=== PATIENT | male | born 1955 | race Caucasian/White ===

== ENCOUNTER 2018-12-28 13:04 | Inpatient (IN) | payer MEDICARE, OTHER ==
[2018-12-28 14:03] LABS: ADD MAN DIFF? NO
[2018-12-28 14:05] LABS: BASOPHIL # 0.1 10^3/ul (0.0-0.1); BASOPHILS % 0.6 % (0.0-2.0); EOSINOPHILS # 0.1 10^3/ul (0.0-0.5); HEMATOCRIT 43.7 % (42.0-52.0); HEMOGLOBIN 14.4 g/dl (14.0-18.0); LYMPHOCYTES # 0.8 10^3/ul (0.8-2.9); LYMPHOCYTES % 10.2 % (15.0-51.0); MEAN CORPUSCULAR HEMOGLOBIN 28.1 pg (29.0-33.0); MEAN CORPUSCULAR VOLUME 85.4 fl (82.0-101.0); MEAN PLATELET VOLUME 10.3 fl (7.4-10.4); MONOCYTE # 0.7 10^3/ul (0.3-0.9); MONOCYTES % 8.2 % (0.0-11.0); NEUTROPHIL # 6.6 10^3/ul (1.6-7.5); NEUTROPHILS % 79.4 % (39.0-77.0); PLATELET COUNT 223 10^3/UL (140-415); RED BLOOD COUNT 5.12 10^6/ul (4.70-6.10); RED CELL DISTRIBUTION WIDTH 13.8 % (11.5-14.5)
[2018-12-28 14:05] LABS: WHITE BLOOD COUNT 8.3 10^3/ul (4.8-10.8)
[2018-12-28 14:17] LABS: HEMOGLOBIN A1C 13.3 % (0-5.9)
[2018-12-28 14:24] LABS: INR 0.94; PROTIME 12.7 Sec (11.9-14.9)
[2018-12-28 14:25] LABS: PARTIAL THROMBOPLASTIN TIME 25.1 Sec (23.0-35.0)
[2018-12-28 14:37] LABS: ANION GAP 15 (5-13); BLOOD UREA NITROGEN 16 mg/dl (7-20); CALCIUM 9.4 mg/dl (8.4-10.2); CARBON DIOXIDE 23 mmol/L (21-31); CHLORIDE 100 mmol/L (97-110); CHOL/HDL RATIO 5.7 RATIO; CHOLESTEROL 217 mg/dl (100-200); CREATININE 0.83 mg/dl (0.61-1.24); Estimated GFR > 60 mL/min (>60); HDL CHOLESTEROL 38 mg/dl (30-78); LDL CHOLESTEROL,CALCULATED 142 mg/dl; POTASSIUM 4.5 mmol/L (3.5-5.1); SODIUM 138 mmol/L (135-144); TRIGLYCERIDES 183 mg/dl (0-149)
[2018-12-28 14:43] LABS: GLUCOSE 460 mg/dl (70-220)
[2018-12-28 14:48] LABS: TROPONIN-I 0.022 ng/ml (0.000-0.120)
[2018-12-28] MEDS: SOD CHLORIDE 0.9% 1,000 ML IV ×2 (14:54→19:34)
[2018-12-28] MEDS: LACTATED RINGER'S 1,000 ML IV (14:55)
[2018-12-28] MEDS ORDERED: ONDANSETRON 4 MG INJ IV ×2 (16:30→17:00)
[2018-12-28] MEDS ORDERED: ACETAMINOPHEN 325 MG TAB PO (16:30)
[2018-12-28] MEDS ORDERED: MAGNESIUM HYDROXIDE 30ML CUP PO (17:00)
[2018-12-28] MEDS ORDERED: NACL 0.9% 3 ML SYG IV (17:00)
[2018-12-28] MEDS ORDERED: DOCUSATE SODIUM 100 MG CAP PO (17:00)
[2018-12-28] MEDS ORDERED: LORAZEPAM 2 MG INJ IV (17:00)
[2018-12-28] MEDS ORDERED: DEXTROSE 50% 50 ML SYRINGE IV ×2 (17:30)
[2018-12-28] MEDS ORDERED: GLUCOSE GEL 15 GRAM TUBE BUCCAL (17:30)
[2018-12-28] MEDS ORDERED: GLUCAGON 1 MG INJ IM (17:30)
[2018-12-28] MEDS ORDERED: GLUCOSE GEL 15 GRAM TUBE PO ×2 (17:30)
[2018-12-28] MEDS: INSULIN ASPART [NOVOLOG] 3 ML PEN SC ×3 (18:14→21:00)
[2018-12-28] MEDS: ACCU-CHEK XX (19:00)
[2018-12-28] MEDS: LORAZEPAM 2 MG INJ IV (19:34)
[2018-12-28] MEDS: ATORVASTATIN 80 MG TAB PO (21:00)
[2018-12-28] MEDS: INSULIN GLARGINE [LANTus] (100 UNITS/ML) SYG SC (21:00)
[2018-12-28] MEDS: FAMOTIDINE 20 MG INJ IV (22:26)
[2018-12-29] MEDS: INSULIN ASPART [NOVOLOG] 3 ML PEN SC ×5 (01:00→20:57)
[2018-12-29] MEDS: SOD CHLORIDE 0.9% 1,000 ML IV ×3 (02:35→22:35)
[2018-12-29 06:33] LABS: ADD MAN DIFF? NO
[2018-12-29 06:38] LABS: WHITE BLOOD COUNT 6.6 10^3/ul (4.8-10.8)
[2018-12-29 06:38] LABS: BASOPHIL # 0.1 10^3/ul (0.0-0.1); BASOPHILS % 0.8 % (0.0-2.0); EOSINOPHILS # 0.2 10^3/ul (0.0-0.5); EOSINOPHILS % 2.9 % (0.0-7.0); HEMATOCRIT 39.2 % (42.0-52.0); LYMPHOCYTES # 1.3 10^3/ul (0.8-2.9); LYMPHOCYTES % 19.8 % (15.0-51.0); MEAN CORPUSCULAR HEMOGLOBIN 28.4 pg (29.0-33.0); MEAN CORPUSCULAR HGB CONC 33.2 g/dl (32.0-37.0); MEAN CORPUSCULAR VOLUME 85.8 fl (82.0-101.0); MEAN PLATELET VOLUME 9.9 fl (7.4-10.4); MONOCYTE # 0.7 10^3/ul (0.3-0.9); MONOCYTES % 10.7 % (0.0-11.0); NEUTROPHIL # 4.3 10^3/ul (1.6-7.5); NEUTROPHILS % 64.7 % (39.0-77.0); PLATELET COUNT 197 10^3/UL (140-415); RED BLOOD COUNT 4.57 10^6/ul (4.70-6.10); RED CELL DISTRIBUTION WIDTH 13.9 % (11.5-14.5)
[2018-12-29 07:11] LABS: ALANINE AMINOTRANSFERASE 21 IU/L (13-69); ALBUMIN/GLOBULIN RATIO 1.03; ALKALINE PHOSPHATASE 83 IU/L (42-121); ANION GAP 9 (5-13); ASPARTATE AMINO TRANSFERASE 16 IU/L (15-46); BILIRUBIN,INDIRECT 0.5 mg/dl (0-1.1); BILIRUBIN,TOTAL 0.5 mg/dl (0.2-1.3); BLOOD UREA NITROGEN 14 mg/dl (7-20); CALCIUM 8.7 mg/dl (8.4-10.2); CARBON DIOXIDE 26 mmol/L (21-31); CHLORIDE 107 mmol/L (97-110); CREATININE 0.73 mg/dl (0.61-1.24); Estimated GFR > 60 mL/min (>60); GLUCOSE 144 mg/dl (70-220); MAGNESIUM 1.6 mg/dl (1.7-2.5); POTASSIUM 3.1 mmol/L (3.5-5.1); SODIUM 142 mmol/L (135-144); TOTAL PROTEIN 5.9 g/dl (6.1-8.1)
[2018-12-29] MEDS: FAMOTIDINE 20 MG INJ IV ×2 (08:29→20:25)
[2018-12-29] MEDS: ASPIRIN 81 MG TAB PO (08:29)
[2018-12-29] MEDS: GABAPENTIN 300 MG CAP PO (08:29)
[2018-12-29] MEDS: INSULIN GLARGINE [LANTus] (100 UNITS/ML) SYG SC ×2 (08:46→20:56)
[2018-12-29] MEDS: POTASSIUM CHLORIDE 100 ML IVPB ×3 (10:10→17:46)
[2018-12-29] MEDS: MAGNESIUM SULFATE 2 GM/50 ML 50 ML IVPB (10:10)
[2018-12-29] MEDS: SOD CHLORIDE 0.9% 100 ML (10:49)
[2018-12-29] MEDS: IODIXANOL LOCM 100 ML BTL (10:50)
[2018-12-29 12:33] LABS: HIV 1&2 ANTIBODY NEGATIVE (NEGATIVE)
[2018-12-29] MEDS: AMLODIPINE 5 MG TAB PO (13:39)
[2018-12-29] MEDS: LOSARTAN 50 MG TAB PO (13:40)
[2018-12-29] MEDS: ATORVASTATIN 80 MG TAB PO (20:24)
[2018-12-30] MEDS: SOD CHLORIDE 0.9% 1,000 ML IV ×2 (05:32→17:11)
[2018-12-30] MEDS: FAMOTIDINE 20 MG INJ IV ×2 (08:07→20:55)
[2018-12-30] MEDS: ASPIRIN 81 MG TAB PO (08:07)
[2018-12-30] MEDS: AMLODIPINE 5 MG TAB PO (08:08)
[2018-12-30] MEDS: GABAPENTIN 300 MG CAP PO (08:09)
[2018-12-30] MEDS: LOSARTAN 50 MG TAB PO (08:09)
[2018-12-30] MEDS: INSULIN ASPART [NOVOLOG] 3 ML PEN SC ×4 (08:18→21:03)
[2018-12-30] MEDS: INSULIN GLARGINE [LANTus] (100 UNITS/ML) SYG SC ×2 (12:16→21:42)
[2018-12-30] MEDS: ATORVASTATIN 80 MG TAB PO (20:55)
[2018-12-31] MEDS: SOD CHLORIDE 0.9% 1,000 ML IV ×2 (03:21→12:31)
[2018-12-31] MEDS: ASPIRIN 81 MG TAB PO (08:10)
[2018-12-31] MEDS: AMLODIPINE 5 MG TAB PO (08:11)
[2018-12-31] MEDS: GABAPENTIN 300 MG CAP PO (08:11)
[2018-12-31] MEDS: FAMOTIDINE 20 MG INJ IV ×2 (08:11→20:36)
[2018-12-31] MEDS: LOSARTAN 50 MG TAB PO (08:30)
[2018-12-31] MEDS: INSULIN GLARGINE [LANTus] (100 UNITS/ML) SYG SC ×2 (08:53→21:43)
[2018-12-31] MEDS: INSULIN ASPART [NOVOLOG] 3 ML PEN SC ×4 (08:53→20:46)
[2018-12-31 09:20] LABS: ADD UMIC YES; UR ASCORBIC ACID NEGATIVE (NEGATIVE); UR BACTERIA FEW /HPF (NONE SEEN); UR BILIRUBIN (Dip) NEGATIVE (NEGATIVE); UR BLOOD (Dip) 1+ mg/dL (NEGATIVE); UR CLARITY CLEAR (CLEAR); UR COLOR STRAW (YELLOW); UR GLUCOSE (Dip) 3+ mg/dL (NEGATIVE); UR KETONES (Dip) NEGATIVE (NEGATIVE); UR LEUKOCYTE ESTERASE (Dip) 1+ Leu/ul (NEGATIVE); UR NITRITE (Dip) NEGATIVE (NEGATIVE); UR RBC 1 /HPF (0-5); UR SPECIFIC GRAVITY (Dip) 1.008 (1.003-1.030); UR TOTAL PROTEIN (Dip) 2+ mg/dl (NEGATIVE); UR UROBILINOGEN (Dip) NEGATIVE (NEGATIVE); UR WBC 48 /HPF (0-5)
[2018-12-31 09:37] LABS: AMPHETAMINE/METHAMPHETAMINE Negative (NEGATIVE); BARBITURATES Negative (NEGATIVE); BENZODIAZEPINES Negative (NEGATIVE); COCAINE Negative (NEGATIVE); OPIATES Negative (NEGATIVE)
[2018-12-31 09:48] LABS: CANNABINOIDS Negative (NEGATIVE)
[2018-12-31] MEDS: ATORVASTATIN 80 MG TAB PO (20:36)
[2019-01-01] MEDS: INSULIN ASPART [NOVOLOG] 3 ML PEN SC ×4 (07:25→20:55)
[2019-01-01] MEDS: ASPIRIN 81 MG TAB PO (09:36)
[2019-01-01] MEDS: FAMOTIDINE 20 MG INJ IV ×2 (09:36→20:45)
[2019-01-01] MEDS: GABAPENTIN 300 MG CAP PO (09:37)
[2019-01-01] MEDS: AMLODIPINE 5 MG TAB PO (09:38)
[2019-01-01] MEDS: LOSARTAN 50 MG TAB PO (09:38)
[2019-01-01] MEDS: INSULIN GLARGINE [LANTus] (100 UNITS/ML) SYG SC ×2 (12:30→22:34)
[2019-01-01 17:36] LABS: ACETYLCHOLINE RECEPTOR AB <0.30 nmol/L
[2019-01-01] MEDS: ATORVASTATIN 80 MG TAB PO (20:45)
[2019-01-02] MEDS: INSULIN ASPART [NOVOLOG] 3 ML PEN SC ×5 (08:15→21:00)
[2019-01-02] MEDS: GABAPENTIN 300 MG CAP PO (08:27)
[2019-01-02] MEDS: FAMOTIDINE 20 MG INJ IV (08:27)
[2019-01-02] MEDS: LOSARTAN 50 MG TAB PO (08:28)
[2019-01-02] MEDS: AMLODIPINE 5 MG TAB PO (08:28)
[2019-01-02] MEDS: ASPIRIN 81 MG TAB PO (08:28)
[2019-01-02] MEDS: OXCARBAZEPINE 300 MG TAB PO ×2 (11:58→20:40)
[2019-01-02] MEDS: INSULIN GLARGINE [LANTus] (100 UNITS/ML) SYG SC ×2 (12:01→23:34)
[2019-01-02] MEDS: FAMOTIDINE 20 MG TAB PO (20:39)
[2019-01-02] MEDS: ATORVASTATIN 80 MG TAB PO (20:39)
[2019-01-03] MEDS: ACCU-CHEK XX (02:00)
[2019-01-03] MEDS: FAMOTIDINE 20 MG TAB PO ×2 (08:19→21:20)
[2019-01-03] MEDS: OXCARBAZEPINE 300 MG TAB PO ×2 (08:19→21:20)
[2019-01-03] MEDS: GABAPENTIN 300 MG CAP PO (08:19)
[2019-01-03] MEDS: INSULIN GLARGINE [LANTus] (100 UNITS/ML) SYG SC ×2 (08:20→21:22)
[2019-01-03] MEDS: ASPIRIN 81 MG TAB PO (08:20)
[2019-01-03] MEDS: INSULIN ASPART [NOVOLOG] 3 ML PEN SC ×6 (08:21→18:06)
[2019-01-03] MEDS: AMLODIPINE 5 MG TAB PO (08:22)
[2019-01-03] MEDS: LOSARTAN 50 MG TAB PO (08:23)
[2019-01-03 09:01] LABS: ADD MAN DIFF? NO
[2019-01-03 09:04] LABS: WHITE BLOOD COUNT 7.3 10^3/ul (4.8-10.8)
[2019-01-03 09:04] LABS: BASOPHILS % 0.6 % (0.0-2.0); EOSINOPHILS # 0.2 10^3/ul (0.0-0.5); EOSINOPHILS % 2.6 % (0.0-7.0); HEMATOCRIT 40.7 % (42.0-52.0); HEMOGLOBIN 13.7 g/dl (14.0-18.0); LYMPHOCYTES # 1.4 10^3/ul (0.8-2.9); LYMPHOCYTES % 19.2 % (15.0-51.0); MEAN CORPUSCULAR HGB CONC 33.7 g/dl (32.0-37.0); MEAN CORPUSCULAR VOLUME 86.2 fl (82.0-101.0); MEAN PLATELET VOLUME 9.9 fl (7.4-10.4); MONOCYTES % 13.4 % (0.0-11.0); NEUTROPHIL # 4.6 10^3/ul (1.6-7.5); NEUTROPHILS % 63.6 % (39.0-77.0); PLATELET COUNT 203 10^3/UL (140-415); RED BLOOD COUNT 4.72 10^6/ul (4.70-6.10)
[2019-01-03 09:36] LABS: MAGNESIUM 1.6 mg/dl (1.7-2.5)
[2019-01-03 09:36] LABS: PHOSPHORUS 4.4 mg/dl (2.5-4.9)
[2019-01-03 09:37] LABS: ANION GAP 6 (5-13); BLOOD UREA NITROGEN 21 mg/dl (7-20); CALCIUM 9.1 mg/dl (8.4-10.2); CARBON DIOXIDE 33 mmol/L (21-31); CHLORIDE 100 mmol/L (97-110); CREATININE 0.88 mg/dl (0.61-1.24); Estimated GFR > 60 mL/min (>60); GLUCOSE 204 mg/dl (70-220); SODIUM 139 mmol/L (135-144)
[2019-01-03] MEDS: MAGNESIUM SULFATE 1 GM/D5W 100 ML IVPB (15:37)
[2019-01-03] MEDS: ATORVASTATIN 80 MG TAB PO (21:20)
[2019-01-03] MEDS: Insulin NOVOLOG SS MODERATE Algorithm (SS with meals and bedtime) SC (21:30)
[2019-01-04] MEDS: ACCU-CHEK XX (02:00)
[2019-01-04 06:13] LABS: ADD MAN DIFF? NO
[2019-01-04 06:20] LABS: WHITE BLOOD COUNT 6.1 10^3/ul (4.8-10.8)
[2019-01-04 06:20] LABS: BASOPHILS % 0.7 % (0.0-2.0); EOSINOPHILS # 0.2 10^3/ul (0.0-0.5); EOSINOPHILS % 3.8 % (0.0-7.0); HEMATOCRIT 38.1 % (42.0-52.0); HEMOGLOBIN 12.6 g/dl (14.0-18.0); LYMPHOCYTES # 1.7 10^3/ul (0.8-2.9); LYMPHOCYTES % 28.3 % (15.0-51.0); MEAN CORPUSCULAR HGB CONC 33.1 g/dl (32.0-37.0); MEAN CORPUSCULAR VOLUME 87.6 fl (82.0-101.0); MEAN PLATELET VOLUME 10.2 fl (7.4-10.4); MONOCYTES % 15.6 % (0.0-11.0); NEUTROPHIL # 3.1 10^3/ul (1.6-7.5); NEUTROPHILS % 50.9 % (39.0-77.0); PLATELET COUNT 213 10^3/UL (140-415); RED BLOOD COUNT 4.35 10^6/ul (4.70-6.10); RED CELL DISTRIBUTION WIDTH 13.8 % (11.5-14.5)
[2019-01-04 06:38] LABS: ANION GAP 7 (5-13); BLOOD UREA NITROGEN 28 mg/dl (7-20); CARBON DIOXIDE 33 mmol/L (21-31); CHLORIDE 101 mmol/L (97-110); Estimated GFR > 60 mL/min (>60); GLUCOSE 99 mg/dl (70-220); POTASSIUM 3.3 mmol/L (3.5-5.1); SODIUM 141 mmol/L (135-144)
[2019-01-04 06:41] LABS: MAGNESIUM 1.7 mg/dl (1.7-2.5)
[2019-01-04 06:41] LABS: PHOSPHORUS 4.2 mg/dl (2.5-4.9)
[2019-01-04] MEDS: OXCARBAZEPINE 300 MG TAB PO (08:55)
[2019-01-04] MEDS: FAMOTIDINE 20 MG TAB PO (08:55)
[2019-01-04] MEDS: GABAPENTIN 300 MG CAP PO (08:55)
[2019-01-04] MEDS: LOSARTAN 50 MG TAB PO (08:55)
[2019-01-04] MEDS: ASPIRIN 81 MG TAB PO (08:55)
[2019-01-04] MEDS: AMLODIPINE 5 MG TAB PO (08:56)
[2019-01-04] MEDS: INSULIN GLARGINE [LANTus] (100 UNITS/ML) SYG SC (08:57)
[2019-01-04] MEDS: INSULIN ASPART [NOVOLOG] 3 ML PEN SC ×3 (08:58→18:17)
[2019-01-04] MEDS: Insulin NOVOLOG SS MODERATE Algorithm (SS with meals and bedtime) SC ×2 (11:40→17:55)
== END 2019-01-04 18:23 | DRG 91 ==
LOC: E/R 13:04 → TEL 12-29 22:04 → MS1 01-02 23:08 → TEL 16:01
DX: R47.1 Dysarthria and anarthria (principal); I62.00 Nontraumatic subdural hemorrhage, unspecified; E11.65 Type 2 diabetes mellitus with hyperglycemia; E78.5 Hyperlipidemia, unspecified; S91.109A Unspecified open wound of unspecified toe(s) without damage to nail, initial encounter; X58.XXXA Exposure to other specified factors, initial encounter; I10 Essential (primary) hypertension; H02.403 Unspecified ptosis of bilateral eyelids; Z86.73 Personal history of transient ischemic attack (TIA), and cerebral infarction without residual deficits
CPT/HCPCS: 36415; 70450; 70544; 70551; 71045; 71260; 80048; 80053; 80061; 80307; 81001; 82962; 83036; 83519; 83735; 84100; 84443; 84484; 85025; 85610; 85730; 86703; 92507; 92523; 92526; 92610; 93005; 93306; 93880; 95819; 97110; 97116; 97162; 97167; 97530; 99285-25